=== PATIENT | female | born 1990 | race Caucasian/White ===

== ENCOUNTER 2016-07-23 21:27 | Emergency (ER) | payer SELFPAY ==
[~2016-07-23] VITALS: Ht 167.6 cm; Wt 82.0 kg
[2016-07-23 21:50] VITALS: BP 135/74
[2016-07-23] MEDS ORDERED: DIPHENHYDRAMINE 50MG/ML VIAL IV ONE (22:45)
[2016-07-23] MEDS ORDERED: DEXAMETHASONE 10MG/ML 1ML VIAL IV ONE (22:45)
[2016-07-23] MEDS ORDERED: FAMOTIDINE 20MG/2ML VIAL IV ONE (22:45)
== END 2016-07-24 00:15 | disposition home or self-care (01) ==
LOC: ER 21:35
DX: T78.40XA Allergy, unspecified, initial encounter (principal); E05.90 Thyrotoxicosis, unspecified without thyrotoxic crisis or storm; R22.0 Localized swelling, mass and lump, head; Z91.013 Allergy to seafood; Y92.89 Other specified places as the place of occurrence of the external cause
CPT/HCPCS: 96374; 96375; 99284; J1100; J1200; J3490; Z7610

== ENCOUNTER 2018-05-29 21:46 | Emergency (ER) | payer SELFPAY ==
[~2018-05-29] VITALS: Ht 167.6 cm; Wt 82.0 kg
[2018-05-29 21:50] VITALS: BP 133/97
== END 2018-05-30 02:00 | disposition left against medical advice (07) ==
LOC: ER 21:46
DX: Z53.21 Procedure and treatment not carried out due to patient leaving prior to being seen by health care provider (principal)